=== PATIENT | female | born 1975 | race Caucasian/White ===

== ENCOUNTER 2017-12-22 08:18 | Emergency (ER) | payer OTHER ==
[~2017-12-22] VITALS: Ht 167.6 cm; Wt 55.8 kg
[2017-12-22 08:34] VITALS: BP 167/107
[2017-12-22] MEDS ORDERED: SUMAtriptan SUCCINATE 6 MG/0.5 ML VL SC ONE (09:15)
== END 2017-12-22 10:26 | disposition home or self-care (01) ==
LOC: ER 08:18
DX: G43.909 Migraine, unspecified, not intractable, without status migrainosus (principal); F41.1 Generalized anxiety disorder; Z76.0 Encounter for issue of repeat prescription
CPT/HCPCS: 36600; 82805; 96372; 99284; J3030